=== PATIENT | male | born 1960 | race Hispanic/Latino ===

== ENCOUNTER 2016-08-13 18:26 | Inpatient (IN) | payer OTHER ==
[2016-08-13 18:40] VITALS: O2SAT 98; BMI 26.7
--- NOTE | 2016-08-13 19:52 | ED PDOC ---
Arrival/HPI - General Chief Complaint: Psychiatric Evaluation Time Seen by Provider: 08/13/16 18:40 Historian: Patient - History of Present Illness Narrative History of Present Illness (Text): 08/13/16 19:45 56yo male with history of Depression and anxiety referred to ED by his Psychiatrist Dr. Parkinson. He reports anxiety and depression. States his job has being moving him to different locations without prior notice and it is making him anxious. He notes that he is taking his antipsychiatric medication. States he has been having suicidal ideation for weeks. Denies HI, hallucination , any somatic complaint. Past Medical History - Provider Review Nursing Documentation Reviewed: Yes - Tetanus Immunization Tetanus Immunization: Up to Date - Cardiac Hx Cardiac Disorders: Yes Hx Hypertension: Yes - Pulmonary Hx Respiratory Disorders: No (Smoker) Hx Asthma: No Hx Bronchitis: No Hx Chronic Obstructive Pulmonary Disease (COPD): No Hx Emphysema: No Hx Pneumonia: No Hx Respiratory Aspiration: No Hx Respiratory Tract Infection: No Hx Sleep Apnea: No Hx Tuberculosis: No - Neurological Hx Alzheimer's Disease: No HX Cerebrovascular Accident: No Hx Dementia: No Hx Dizziness: No Hx Meningitis: No Hx Migraine: No Hx Parkinson's Disease: No Hx Seizures: No Hx Transient Ischemic Attacks (TIA): No - HEENT Hx HEENT Disorder: No Hx Cataracts: No Hx Deafness: No Hx Difficulty Chewing: No Hx Epistaxis: No Hx Glaucoma: No Hx Macular Degeneration: No - Renal Hx Renal Disorder: No Hx Dialysis: No Hx Kidney Stones: No Hx Neurogenic Bladder: No Hx Pyelonephritis: No Hx Renal Cancer: No Hx Renal Failure: No - Endocrine/Metabolic Hx Endocrine Disorders: No Hx Adrenal Cancer: No Hx Diabetes Insipidus: No Hx Diabetes Mellitus Type 1: No Hx Diabetes Mellitus Type 2: No Hx Hyperthyroidism: No Hx Hypothyroidism: No Hx Systemic Lupus Erythematosus: No - Hematological/Oncological Hx Blood Disorders: No Hx AIDS: No Hx Anemia: No Hx Cancer: No Hx Chemotherapy: No Hx Cirrhosis: No Hx Hemophilia: No Hx Hepatitis A: No Hx Hepatitis B: No Hx Hepatitis C: No Hx Metastasis: No Hx Shingles: No Hx Sickle Cell Disease: No Hx Unexplained Bleeding: No - Integumentary Hx Dermatological Disorder: No Hx Basal Cell Carcinoma: No Hx Eczema: No Hx Melanoma: No Hx Psoriasis: No Hx Squamous Cell Carcinoma: No - Musculoskeletal/Rheumatological Hx Musculoskeletal Disorders: Yes Hx Osteoporosis: No Other/Comment: NECK PAIN - Gastrointestinal Hx Gastrointestinal Disorders: No Hx Colostomy: No Hx Crohn's Disease: No Hx Diverticulitis: No Hx Gall Bladder Disease: No Hx Gastroesophageal Reflux: Yes Hx Ileostomy: No Hx Liver Failure: No Hx Pancreatitis: No HX Swallowing Problems: No - Genitourinary/Gynecological Hx Genitourinary Disorders: No Hx Hematuria: No Hx Incontinence: No Hx Prostate Problems: No Hx Sexually Transmitted Diseases: No Hx Urinary Tract Infection: No - Psychiatric Hx Anxiety: Yes Hx Depression: Yes Hx Emotional Abuse: No Hx Physical Abuse: No Hx Substance Use: No - Past Surgical History Past Surgical History: No Previous - Surgical History Hx Amputation: No Hx Appendectomy: No Hx Cardiac Catheterization: No Hx Cholecystectomy: No Hx Coronary Stent: No Hx Gastric Bypass Surgery: No Hx Hysterectomy: No Hx Joint Replacement: No Hx Kidney Transplant: No Hx Liver Transplant: No Hx Mastectomy: No Hx Musculoskeletal Surgery: No Hx Open Heart Surgery: No Hx Orthopedic Surgery: No Hx Splenectomy: No Hx Valve Replacement: No - Anesthesia Hx Anesthesia: Yes Hx Anesthesia Reactions: No Hx Malignant Hyperthermia: No - Suicidal Assessment Feels Threatened In Home Enviroment: No Family/Social History - Physician Review Nursing Documentation Reviewed: Yes Family/Social History: Unknown Family HX Smoking Status: Heavy Smoker > 10 Cigarettes Daily Hx Alcohol Use: No Hx Substance Use: No Hx Substance Use Treatment: No Allergies/Home Meds Allergies/Adverse Reactions: Allergies No Known Allergies Allergy (Verified 08/13/16 23:08) Home Medications: Home Meds Medication Instructions Recorded Confirmed Brexpiprazole [Rexulti] 0.5 mg PO HS 08/13/16 08/13/16 Tiotropium Br/Olodaterol HCl 2.5 mcg INH DAILY 08/13/16 08/13/16 [Stiolto Respimat Inhal [place]] Review of Systems - Physician Review All systems were reviewed & negative as marked: Yes - Review of Systems Constitutional: Normal Eyes: Normal ENT: Normal Respiratory: Normal Cardiovascular: Normal Gastrointestinal: Normal Genitourinary Male: Normal Musculoskeletal: Normal Skin: Normal Neurological: Normal Endocrine: Normal Hemo/Lymphatic: Normal Psychiatric: Anxiety, Depression, Suicidal Ideation Physical Exam Vital Signs Reviewed: Yes Vital Signs Temp Pulse Resp BP Pulse Ox 08/13/16 22:43 18 176/76 H 08/13/16 18:35 97.9 F 82 18 157/90 H 98 Temperature: Afebrile Blood Pressure: Normal Pulse: Regular Respiratory Rate: Normal Appearance: Positive for: Well-Appearing, Non-Toxic, Comfortable Pain Distress: None Mental Status: Positive for: Alert and Oriented X 3 - Systems Exam Head: Present: Atraumatic, Normocephalic Pupils: Present: PERRL Extroacular Muscles: Present: EOMI Conjunctiva: Present: Normal Mouth: Present: Moist Mucous Membranes Neck: Present: Normal Range of Motion Respiratory/Chest: Present: Clear to Auscultation, Good Air Exchange. No: Respiratory Distress, Accessory Muscle Use Cardiovascular: Present: Regular Rate and Rhythm, Normal S1, S2. No: Murmurs Abdomen: Present: Normal Bowel Sounds. No: Tenderness, Distention, Peritoneal Signs Back: Present: Normal Inspection Upper Extremity: Present: Normal Inspection. No: Cyanosis, Edema Lower Extremity: Present: Normal Inspection. No: Edema Neurological: Present: GCS=15, CN II-XII Intact, Speech Normal Skin: Present: Warm, Dry, Normal Color. No: Rashes Psychiatric: Present: Alert, Oriented x 3, Normal Insight, Normal Concentration , Anxious Medical Decision Making ED Course and Treatment: 08/14/16 01:12 PT was medically cleared for psychiatric evaluation. He was seen in ED by CAROL Lyles and was admitted to Dr. Santiago's service for MDD and RAY - Lab Interpretations Lab Results: 08/13/16 20:07 08/13/16 20:07 Lab Results 08/13/16 20:07: Alcohol, Quantitative < 10 08/13/16 20:07: Salicylates < 1 L, Acetaminophen < 10.0 L 08/13/16 20:07: Urine Opiates Screen Negative, Urine Methadone Screen Negative, Ur Barbiturates Screen Negative, Ur Phencyclidine Scrn Negative, Ur Amphetamines Screen Negative, U Benzodiazepines Scrn Positive H, U Oth Cocaine Metabols Negative, U Cannabinoids Screen Negative 08/13/16 20:07: Sodium 137, Potassium 3.9, Chloride 103, Carbon Dioxide 27, Anion Gap 11, BUN 16, Creatinine 0.8, Est GFR ( Amer) > 60, Est GFR (Non- Af Amer) > 60, Random Glucose 87, Calcium 9.0, Total Bilirubin 0.5, AST 24, ALT 32, Alkaline Phosphatase 92, Total Protein 7.8, Albumin 3.9, Globulin 3.9, Albumin/Globulin Ratio 1.0 L 08/13/16 20:07: Urine Color Yellow, Urine Appearance Clear, Urine pH 7.0, Ur Specific [place] 1.015, Urine Protein Trace H, Urine Glucose (UA) Negative, Urine Ketones Negative, Urine Blood Negative, Urine Nitrate Negative, Urine Bilirubin Negative, Urine Urobilinogen 2.0 H, Ur Leukocyte Esterase Negative, Urine RBC 0 - 2, Urine WBC 0 - 2, Ur Epithelial Cells 0 - 2, Urine Bacteria Few 08/13/16 20:07: WBC 7.9, RBC 4.47, Hgb 13.9 L, Hct 40.5 L, MCV 90.6, MCH 31.1, MCHC 34.3, RDW 13.6, Plt Count 213, MPV 10.8, Gran % 60.2, Lymph % (Auto) 31.0, [place] % (Auto) 6.9 H, Eos % (Auto) 1.6, Baso % (Auto) 0.3, Gran # 4.77, Lymph # 2.5, [place] # 0.6, Eos # 0.1, Baso # 0.02 - Medication Orders Current Medication Orders: Acetaminophen (Tylenol 325mg Tab) 650 mg PO Q6H PRN PRN Reason: Pain, Mild (1-3) Al Hydrox/Mg Hydrox/Simethicone (Maalox Plus 30 Ml) 30 ml PO DAILY PRN PRN Reason: Upset Stomach Alprazolam (Xanax) 1 mg PO TID PRN; Protocol PRN Reason: Anxiety Last Admin: 08/14/16 00:08 Dose: 1 mg Amlodipine Besylate (Norvasc) 10 mg PO DAILY JOSE Lisinopril (Zestril) 20 mg PO DAILY JOSE Magnesium Hydroxide (Milk Of Magnesia) 30 ml PO DAILY PRN PRN Reason: Constipation Nicotine (Nicoderm Cq) 1 patch TD DAILY JOSE Paroxetine HCl (Paxil) 20 mg PO HS JOSE Discontinued Medications Paroxetine HCl (Paxil) 20 mg PO DAILY JOSE Paroxetine HCl (Paxil) 20 mg PO ONCE ONE Stop: 08/14/16 00:04 Last Admin: 08/14/16 00:09 Dose: 20 mg Disposition/Present on Arrival - Present on Arrival Any Indicators Present on Arrival: No History of DVT/PE: No History of Uncontrolled Diabetes: No Urinary Catheter: No History of Decub. Ulcer: No History Surgical Site Infection Following: None - Disposition Have Diagnosis and Disposition been Completed?: Yes Diagnosis: Suicidal ideation, MDD (major depressive disorder), RAY (generalized anxiety disorder) Disposition: HOSPITALIZED Disposition Time: 21:50 Patient Problems: Current Active Problems Problem Status Onset RAY (generalized anxiety disorder) Acute MDD (major depressive disorder) Acute Suicidal ideation Acute Condition: FAIR
[2016-08-13 20:08] LABS: ADD MANUAL DIFF? NO
[2016-08-13 20:18] LABS: URINE BILIRUBIN NEGATIVE (NEGATIVE); URINE BLOOD NEGATIVE (NEGATIVE); URINE GLUCOSE (UA) NEGATIVE (NEGATIVE); URINE KETONE NEGATIVE (NEGATIVE); URINE LEUKOCYTE ESTERASE NEGATIVE Leu/uL (NEGATIVE); URINE PROTEIN TRACE mg/dL (<30 mg/dL)
[2016-08-13 20:24] LABS: URINE APPEARANCE CLEAR (CLEAR); URINE COLOR YELLOW (YELLOW)
[2016-08-13 20:25] LABS: ALKALINE PHOSPHATASE 92 U/L (38-133); ALT/SGPT 32 U/L (7-56); AST/SGOT 24 U/L (15-59); BILIRUBIN,TOTAL 0.5 mg/dL (0.2-1.3); BLOOD UREA NITROGEN 16 mg/dL (7-21); CARBON DIOXIDE 27 mmol/L (21-33); CHLORIDE 103 mmol/L (98-107); GFR AFRICAN-AMERICAN > 60; GLUCOSE,RANDOM 87 mg/dL (70-110); POTASSIUM 3.9 mmol/L (3.6-5.0); SODIUM 137 mmol/L (132-148); TOTAL PROTEIN 7.8 g/dL (5.8-8.3)
[2016-08-13 20:30] LABS: URINE BACTERIA FEW (NEG); URINE EPITHELIAL CELLS 0 - 2 /hpf (0-5); URINE RBC 0 - 2 /hpf (0-2); URINE WBC 0 - 2 /hpf (0-6)
[2016-08-13 20:34] LABS: BASO # 0.02 K/mm3 (0.0-2.0); BASO % 0.3 % (0.0-3.0); EOS # 0.1 (0.0-0.7); EOS % 1.6 % (1.5-5.0); GRAN # 4.77 (1.4-6.5); GRAN % 60.2 % (50.0-68.0); HEMATOCRIT 40.5 % (42.0-52.0); LYMPH # 2.5 (1.2-3.4); MEAN CELL VOLUME 90.6 fL (80.0-105.0); MEAN CORPUSCULAR HEMOGLOBIN 31.1 pg (25.0-35.0); MEAN CORPUSCULAR HGB CONC 34.3 g/dl (31.0-37.0); MEAN PLATELET VOLUME 10.8 fl (7.0-11.0); MONO # 0.6 (0.1-0.6); MONO % 6.9 % (1.0-6.0); PLATELET COUNT 213 10^3/uL (120.0-450.0); RED CELL DISTRIBUTION WIDTH 13.6 % (11.5-14.5); WHITE BLOOD COUNT 7.9 10^3/ul (4.5-11.0)
[2016-08-13] MEDS ORDERED: Magnesium Hydroxide Susp 30 ml UD PO PRN (23:00)
--- NOTE | 2016-08-13 23:50 | PCM.BM ---
Addendum entered and electronically signed by Bettie Andrade AT 08/20/16 12:24: Treatment Plan Problems - Problems identified on initial assessmt suiicidal Assessment reference: NA Status: Active depression Date Initiated: 08/13/16 Assessment reference: NA Status: Active Problem 3 anxiety Date Initiated: 08/13/16 Assessment reference: NA Status: Active Problem 1 Suicidal ideation Date Initiated: 08/13/16 Time Initiated: 23:47 Assessment reference: NA Status: Active Priority: 1 Problem 2 depression Date Initiated: 08/13/16 Assessment reference: NA Status: Active Priority: 2 Problem 1 Date Initiated: 08/13/16 Time Initiated: 23:47 Assessment reference: NA Status: Active Priority: 1 Problem 2 Date Initiated: 08/13/16 Time Initiated: 23:48 Assessment reference: NA Status: Active Priority: 2 Problem 3 Date Initiated: 08/13/16 Time Initiated: 23:48 Assessment reference: NA Status: Active Priority: 3 Original Note: <Stephen Ambriz - Last Filed: 08/13/16 23:47> Treatment Plan Problems - Problems identified on initial assessmt Problem 1 Date Initiated: Suicidal Ideation Time Initiated: 23:47 Assessment reference: NA Status: Active Priority: 1 Problem 2 Date Initiated: Depression Time Initiated: 23:48 Assessment reference: NA Status: Active Priority: 2 Problem 3 Date Initiated: Anxiety Time Initiated: 23:48 Assessment reference: NA Status: Active Priority: 3 Treatment team patient informa Patient Assests: cooperative, insightful, self-reliant, ADL independent, physically healthy, good support system, negotiates basic needs, good past tx response, cognitively intact, good interpersonal skills Patient Liabilities: financial problems - Milieu Protocol Maintain good personal hygiene: daily Encourage regular showers, daily Remind patient to perform daily oral care, daily Assist patient to perform ADL's Conduct patient checks and document Observation sheet: Q15 minutes Maintain personal safety: every shift Educate patient to report safety concerns to staff, every shift Monitor environment for contraband/sharps Medication safety: Monitor for expected outcome, potential side effects: every shift, Assess barriers to learning: every shift, Assess readiness for medication education: every shift <Pamela Adams - Last Filed: 08/14/16 11:17> DSM5-Treatment Plan - Diagnosis (1) RAY (generalized anxiety disorder) Status: Acute Interventions: 08/14/16 09:33 * Assess/adjust medications daily and /or as needed * See patient on an individual basis 7x/week to assess symptoms of anxiety * Educate patient regarding benefits, side effects and risks of prescribed medications * CBT as outpatient * med management * biofeedback * relaxation techniques (2) MDD (major depressive disorder) Status: Acute Interventions: 08/14/16 09:35 * Assess/adjust medications daily and /or as needed * See patient on an individual basis 7x/week to assess symptoms of depression * Monitor for side effects & effectiveness of medications * supportive/CBT therapy * meds and f/u compliance * suicide and homicide prevention (3) Suicidal ideation Status: Acute Interventions: 08/14/16 09:36 * Assess/adjust medications daily and /or as needed * See patient on an individual basis 7x/week to assess symptoms of depression/ anxiety * Educate patient regarding benefits, side effects and risks of prescribed medications * suicide and homicide prevention * coping strategies * safety plan * DTP (day treatment program) * family involvement (4) Hypertension Status: Acute Interventions: 08/14/16 09:37 meds management pt will be seen by the PCP education meds compliance <Candice Jain - Last Filed: 08/14/16 12:20> Family Contact Family involvement: Family/SO is involved Family contact: Patient agrees to contact Family contact name: Carie Wayne() Family contacted how many times per week?: 2 Family contact comment: [phone] - Outside Agency Dr. Galvan Care involvment: Not involved Agency contact name: psychiatrist, Dr. Galvan <Licha Dailey - Last Filed: 08/14/16 16:14> Treatment Plan Problems - Problems identified on initial assessmt Problem 3 anxiety Date Initiated: 08/13/16 Assessment reference: NA Status: Active Problem 1 Suicidal ideation Date Initiated: 08/13/16 Time Initiated: 23:47 Assessment reference: NA Status: Active Priority: 1 Problem 2 depression Date Initiated: 08/13/16 Assessment reference: NA Status: Active Priority: 2 suiicidal Assessment reference: NA Status: Active depression Date Initiated: 08/13/16 Assessment reference: NA Status: Active Treatment team patient informa Patient Assests: adapts well, cooperative, motivated, ADL independent, cognitively intact Patient Liabilities: poor support system, relationship conflicts - Milieu Protocol Maintain good personal hygiene: daily Encourage regular showers, daily Remind patient to perform daily oral care, daily Assist patient to perform ADL's Conduct patient checks and document Observation sheet: Q15 minutes Maintain personal safety: every shift Educate patient to report safety concerns to staff, every shift Monitor environment for contraband/sharps Medication safety: Monitor for expected outcome, potential side effects: every shift, Assess barriers to learning: every shift, Assess readiness for medication education: every shift Family Contact - Goals for Treatment Patient goals for treatment: to get myself back Discharge/Continuing Care - Education Needs Education Needs: Patient Medication, Patient Diagnosis/Disease Process, Patient Coping Skills, Patient Anger Management skills, Patient Placement options, Patient Community resources, Patient Activities of Daily Living, Patient Pain, Patient Nutrition, Patient Health Practices/Safety, Patient Personal Hygiene/ Grooming, Patient Aftercare Safety Plan - Discharge Discharge Criteria: Tolerates medication w/o severe side effects, Free of Suicidal thoughts, Free of agitation, Normal sleep pattern, Ability to care for self Discharge to:: Home - Treatment Team Participation Discussed with Family/SO: No Was Patient/Family/SO present at Treatment Team Meeting: Yes
--- NOTE | 2016-08-14 16:03 | CARD ---
APPROVED REPORT EKG Measurement Heart [id number] <Conclusion> Normal sinus rhythm T wave abnormality, consider inferior ischemia Abnormal ECG
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
--- NOTE | 2016-08-14 19:18 | CON ---
DATE: 08/14/2016 HISTORY OF PRESENT ILLNESS: This is a 56-year-old white male with a past medical history of anxiety, depression and complaining of some memory and forgetfulness problems and the patient was at job in d ifferent location and was very anxious and did not recognize people. Denies any headache, numbness, tingling in arms, legs or face. HOME MEDICATION: ALLERGIES: No known drug allergy. LABORATORY DATA: WBC 7.9, hemoglobin 13.9, hematocrit 40.5, platelets 213. Sodium 137, potassium 3. 9, chloride 103, CO2 of 27, glucose 87, BUN 16, creatinine 0.8. PHYSICAL EXAMINATION: NEUROLOGIC: Alert, awake, oriented to self and place. Cranial nerves II through XII were tested. P upils reactive. EOMs intact. Visual espinal full. No facial asymmetry. Tongue midline. Moves all the extremities equally. Tone normal. Deep tendon reflexes 1+. Both plantars are downgoing. Senso ry appears intact. Cerebellar, gait normal. IMPRESSION: 1. Mild cognitive dysfunction, possibly dementia. 2. Depression. PLAN: MRI of the head with and without gadolinium and EEG. Further management after the results of above tests. Blayne Xiong MD cc: [id number] TT: 08/14/2016 19:17:28 Confirmation # [id number] Dictation # [id number] stephanie
[2016-08-14] MEDS: Alum-Mag Hydrox-Simethicone Susp (30 mL) PO PRN (23:40)
[2016-08-15 08:00] LABS: CHOLESTEROL 191 mg/dL (130-200); GLUCOSE,FASTING 94 mg/dL (65-110)
[2016-08-15 08:17] LABS: FREE T4 0.88 ng/dL (0.78-2.19)
[2016-08-15 08:30] LABS: THYROID STIMULATING HORMONE 1.44 mIU/mL (0.46-4.68)
--- NOTE | 2016-08-15 10:22 | CP.PCM.PCO ---
Physician Communication Note - Physician Communication Note Physician Communication Note: eeg is mildly slow.WIll f/u as outpt.c/w attention exercises&pysch mx.
--- NOTE | 2016-08-15 14:55 | PCM.PYCHPN ---
Psychiatric Progress Note - Psychiatric Progress Note Patient seen today, length of contact: 30 minute Patient Chief Complaint: "I I lost myself" Problems Identified/Issues Discussed: Suicide/ homicide prevention, past psychiatric h/o, current psychiatric symptoms , medical problems, risk/benefits and alternatives of medications, medications compliance, coping strategies, substance abuse h/o, relapse prevention, importance of follow up with psychiatrist and therapist, discharge plan. Medical Problems: hypertension ? Early dementia Diagnostic Results: 08/13/16 20:07 08/13/16 20:07 Lab Results 08/15/16 07:00: Free T4 0.88, TSH 3rd Generation 1.44 08/15/16 07:00: Fasting Glucose 94, Triglycerides 127, Cholesterol 191, LDL Cholesterol Direct 142 H, HDL Cholesterol 40 08/13/16 20:07: Alcohol, Quantitative < 10 08/13/16 20:07: Salicylates < 1 L, Acetaminophen < 10.0 L 08/13/16 20:07: Urine Opiates Screen Negative, Urine Methadone Screen Negative, Ur Barbiturates Screen Negative, Ur Phencyclidine Scrn Negative, Ur Amphetamines Screen Negative, U Benzodiazepines Scrn Positive H, U Oth Cocaine Metabols Negative, U Cannabinoids Screen Negative 08/13/16 20:07: Sodium 137, Potassium 3.9, Chloride 103, Carbon Dioxide 27, Anion Gap 11, BUN 16, Creatinine 0.8, Est GFR ( Amer) > 60, Est GFR (Non- Af Amer) > 60, Random Glucose 87, Calcium 9.0, Total Bilirubin 0.5, AST 24, ALT 32, Alkaline Phosphatase 92, Total Protein 7.8, Albumin 3.9, Globulin 3.9, Albumin/Globulin Ratio 1.0 L 08/13/16 20:07: Urine Color Yellow, Urine Appearance Clear, Urine pH 7.0, Ur Specific [place] 1.015, Urine Protein Trace H, Urine Glucose (UA) Negative, Urine Ketones Negative, Urine Blood Negative, Urine Nitrate Negative, Urine Bilirubin Negative, Urine Urobilinogen 2.0 H, Ur Leukocyte Esterase Negative, Urine RBC 0 - 2, Urine WBC 0 - 2, Ur Epithelial Cells 0 - 2, Urine Bacteria Few 08/13/16 20:07: WBC 7.9, RBC 4.47, Hgb 13.9 L, Hct 40.5 L, MCV 90.6, MCH 31.1, MCHC 34.3, RDW 13.6, Plt Count 213, MPV 10.8, Gran % 60.2, Lymph % (Auto) 31.0, [place] % (Auto) 6.9 H, Eos % (Auto) 1.6, Baso % (Auto) 0.3, Gran # 4.77, Lymph # 2.5, [place] # 0.6, Eos # 0.1, Baso # 0.02 Vital Signs Temp Pulse Resp BP Pulse Ox 08/15/16 08:50 133/89 08/15/16 07:55 98.2 F 64 20 133/84 08/14/16 15:57 75 163/101 H 08/14/16 08:29 130/68 08/14/16 07:43 97.6 F 57 L 20 130/68 08/14/16 07:42 97.6 F 57 L 20 130/68 08/13/16 23:12 18 08/13/16 23:00 97.5 F L 77 18 187/89 H 98 08/13/16 22:43 18 176/76 H 08/13/16 18:35 97.9 F 82 18 157/90 H 98 EEG showed mild slowness DSM 5 Symptoms Update: Shortly pt is 56yo Male with reported h/o depression, two previous psychiatric admission to [facility], h/o suicidal attempts approximately a year ago, pt tried to suffocate himself with the belt, a week ago pt had the same attempt, moreover one month ago pt tried to overdose on medications, pt currently under care of outpatient psychiatrist who sent pt here for admission, 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 Pt was seen at [facility], hygiene is much better. Patient has difficult to to remember the task, patient did not remember what assignment was. Patient was seen by neurology team, slowness on EEG, needs to be followed up as outpatient, possible early onset of dementia? pt reported tolerating meds well, no side effects observed or reported, AIMS 0, no EPS. pt reported to feel very depressed, hopeless, worried about his finances. as per staff pt started to attend groups, no behavioral issues, pt appears to be depressed, flat, difficulties with concentration. Impression: DSM 5 Diagnosis: MDD recurrent, severe without psychosis r/o RAY r/o adjustment disorder Medication Change: Yes (Paxil increased) Medical Record Reviewed: Yes Consults ordered or reviewed: mmedical consult will be called Neurology consult appreciated Mental Status Examination - Cognitive Function Orientation: Person, Place, Situation, Time Memory: Impaired (his this documentation writer is unsure if decrease in memory related to depression or dementia?) Attention: Poor Concentration: Poor Association: WNL Fund of Knowledge: WNL - Mood Mood: Depressed ("I am very depressed, I feel hopeless, I lost myself"), Anxious ("i los) - Affect Affect: Constricted, Flat - Formal Thought Process Formal Thought Process: No Impairment - Suicidal Ideation Suicidal Ideation: No - Homicidal Ideation Homicidal Ideation: No Goal/Treatment Plan - Goal/Treatment Plan Need for Continued Stay: Remain at risks for inpatient hospitalization, Severe depression anxiety, Discharge may exacerbated symptoms, Severe functional impairment Progress Toward Problem(s) and Goals/Treatment Plan: milieu, structure, supportive therapy Xanax 1 mg PO TID Will be continued Lisinopril [Zestril] 20 mg PO DAILY will be continued PARoxetine [Paxil] 20 mg PO HS for depression and anxiety (pt was on 10mg hs) this documentation writer offered Wellbutrin, patient does not want to be on that medication amLODIPine [Norvasc] 10 mg PO DAILY will be continued Brexpiprazole [Rexulti] dates nonformulary medical consultation neurology consultation appreciated SW evaluation family involvement Estimated Date of D/C: 08/20/16 (we'll monitor closely)
[2016-08-15] MEDS: Alum-Mag Hydrox-Simethicone Susp (30 mL) PO PRN (16:10)
[2016-08-16] MEDS ORDERED: Gadodiamide 287 MG/ML VIAL (15ML) IV ONE (16:21)
--- NOTE | 2016-08-16 16:50 | PCM.PYCHPN ---
Psychiatric Progress Note - Psychiatric Progress Note Patient seen today, length of contact: 30 minute Patient Chief Complaint: "I I lost myself, I don't know what to do, I am not able to hold information, it is not me..." Problems Identified/Issues Discussed: Suicide/ homicide prevention, past psychiatric h/o, current psychiatric symptoms , medical problems, risk/benefits and alternatives of medications, medications compliance, coping strategies, substance abuse h/o, relapse prevention, importance of follow up with psychiatrist and therapist, discharge plan. Medical Problems: hypertension ? Early dementia Diagnostic Results: 08/13/16 20:07 08/13/16 20:07 Lab Results 08/15/16 07:00: Free T4 0.88, TSH 3rd Generation 1.44 08/15/16 07:00: Fasting Glucose 94, Triglycerides 127, Cholesterol 191, LDL Cholesterol Direct 142 H, HDL Cholesterol 40 08/13/16 20:07: Alcohol, Quantitative < 10 08/13/16 20:07: Salicylates < 1 L, Acetaminophen < 10.0 L 08/13/16 20:07: Urine Opiates Screen Negative, Urine Methadone Screen Negative, Ur Barbiturates Screen Negative, Ur Phencyclidine Scrn Negative, Ur Amphetamines Screen Negative, U Benzodiazepines Scrn Positive H, U Oth Cocaine Metabols Negative, U Cannabinoids Screen Negative 08/13/16 20:07: Sodium 137, Potassium 3.9, Chloride 103, Carbon Dioxide 27, Anion Gap 11, BUN 16, Creatinine 0.8, Est GFR ( Amer) > 60, Est GFR (Non- Af Amer) > 60, Random Glucose 87, Calcium 9.0, Total Bilirubin 0.5, AST 24, ALT 32, Alkaline Phosphatase 92, Total Protein 7.8, Albumin 3.9, Globulin 3.9, Albumin/Globulin Ratio 1.0 L 08/13/16 20:07: Urine Color Yellow, Urine Appearance Clear, Urine pH 7.0, Ur Specific [place] 1.015, Urine Protein Trace H, Urine Glucose (UA) Negative, Urine Ketones Negative, Urine Blood Negative, Urine Nitrate Negative, Urine Bilirubin Negative, Urine Urobilinogen 2.0 H, Ur Leukocyte Esterase Negative, Urine RBC 0 - 2, Urine WBC 0 - 2, Ur Epithelial Cells 0 - 2, Urine Bacteria Few 08/13/16 20:07: WBC 7.9, RBC 4.47, Hgb 13.9 L, Hct 40.5 L, MCV 90.6, MCH 31.1, MCHC 34.3, RDW 13.6, Plt Count 213, MPV 10.8, Gran % 60.2, Lymph % (Auto) 31.0, [place] % (Auto) 6.9 H, Eos % (Auto) 1.6, Baso % (Auto) 0.3, Gran # 4.77, Lymph # 2.5, [place] # 0.6, Eos # 0.1, Baso # 0.02 Vital Signs Temp Pulse Resp BP Pulse Ox 08/15/16 08:50 133/89 08/15/16 07:55 98.2 F 64 20 133/84 08/14/16 15:57 75 163/101 H 08/14/16 08:29 130/68 08/14/16 07:43 97.6 F 57 L 20 130/68 08/14/16 07:42 97.6 F 57 L 20 130/68 08/13/16 23:12 18 08/13/16 23:00 97.5 F L 77 18 187/89 H 98 08/13/16 22:43 18 176/76 H 08/13/16 18:35 97.9 F 82 18 157/90 H 98 EEG showed mild slowness MRI 08/16/16 DSM 5 Symptoms Update: Shortly pt is 56yo Male with reported h/o depression, two previous psychiatric admission [place] [facility], h/o suicidal attempts approximately a year ago, pt tried to suffocate himself with the belt, a week ago pt had the same attempt, moreover one month ago pt tried to overdose on medications, pt currently under care of outpatient psychiatrist who sent pt here for admission, 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 Pt was seen at the treatment team meeting, hygiene is much better. pt still has difficulties to memorize his assignments, asked this chief writer to write it down for him. D/W , MRI with and without contrast recommended, psychiatrist needs to call back to the Neurology team if any abnormalities. EEG showed slowness, needs to be followed up as outpatient, possible early onset of dementia? pt reported tolerating meds well, no side effects observed or reported, AIMS 0, no EPS. pt reported to feel very depressed, hopeless, worried about his finances. as per staff pt started to attend groups, no behavioral issues, pt appears to be depressed, flat, difficulties with concentration. Impression: DSM 5 Diagnosis: MDD recurrent, severe without psychosis r/o RAY r/o adjustment disorder Medication Change: Yes (vitamines) Medical Record Reviewed: Yes Consults ordered or reviewed: mmedical consult will be called Neurology consult appreciated Mental Status Examination - Cognitive Function Orientation: Person, Place, Situation, Time Memory: Impaired (his this chief writer is unsure if decrease in memory related to depression or dementia?) Attention: Poor Concentration: Poor Association: WNL Fund of Knowledge: WNL - Mood Mood: Depressed ("I am very depressed, I feel hopeless, I lost myself"), Anxious ("i los) - Affect Affect: Constricted, Flat - Formal Thought Process Formal Thought Process: No Impairment - Suicidal Ideation Suicidal Ideation: No - Homicidal Ideation Homicidal Ideation: No Goal/Treatment Plan - Goal/Treatment Plan Need for Continued Stay: Remain at risks for inpatient hospitalization, Severe depression anxiety, Discharge may exacerbated symptoms, Severe functional impairment Progress Toward Problem(s) and Goals/Treatment Plan: milieu, structure, supportive therapy Xanax 1 mg PO TID Will be continued Lisinopril [Zestril] 20 mg PO DAILY will be continued PARoxetine [Paxil] 20 mg PO HS for depression and anxiety (pt was on 10mg hs) pt does not want to increase it because "I don't feel myself" multivitamines started this chief writer offered Wellbutrin, patient does not want to be on that medication amLODIPine [Norvasc] 10 mg PO DAILY will be continued Brexpiprazole [Rexulti] dates nonformulary medical consultation neurology consultation appreciated SW evaluation family involvement Estimated Date of D/C: 08/20/16 (we'll monitor closely)
--- NOTE | 2016-08-16 18:31 | MRI ---
PROCEDURE: MRI BRAIN WITH AND WITHOUT CONTRAST HISTORY: memory loss COMPARISON: None. TECHNIQUE: Multiplanar, multisequence MR images of the brain were obtained with and without intravenous contrast enhancement. FINDINGS: HEMORRHAGE: None DWI: No evidence of an acute or early subacute infarction. BRAIN PARENCHYMA: No mass,mass effect or edema. Mild atrophy is noted. ENHANCEMENT: No abnormal intracranial enhancement. VENTRICLES: Unremarkable. No hydrocephalus. CRANIUM: Unremarkable. ORBITS: Grossly unremarkable. PARANASAL SINUSES/MASTOIDS: Clear VASCULAR SYSTEM: Skull base flow voids intact. OTHER FINDINGS: None . IMPRESSION: No evidence of acute pathology in the brain. No evidence of suspicious mass or abnormal enhancement in the brain parenchyma. Small lesion at the anterior coronal radiata/ left frontal white matter demonstrates hyperintense T2 and FLAIR signal and hypointense T1 signal measures 7.5 millimeter may represent old infarct/gliosis. No evidence of mass effect or midline shift. Mild atrophy.
[2016-08-16] MEDS: Alum-Mag Hydrox-Simethicone Susp (30 mL) PO PRN (18:43)
--- NOTE | 2016-08-16 21:15 | EEG ---
DATE: 08/16/2016 CONDITION OF THE RECORDING: Awake, drowsy, history of memory loss. No hyperventilation was done. DESCRIPTION: Background activity of this tracing was composed of 8-9 cycles per second alpha rhythm. Small amount of beta activity 16-20 cycles per second was noted in the tracing. Theta activity 5-7 cycles per second was noted in the tracing. Drowsiness was composed of mixed beta and theta activit y. Photic stimulation did not change the record. No paroxysmal activity was seen in the record. IMPRESSION: Normal awake, drowsy electroencephalography. Blayne Tyrese EDMONDSON cc: [id number] TT: 08/16/2016 21:15:27 Confirmation # [id number] Dictation # [id number]
--- NOTE | 2016-08-17 09:20 | PCM.PYCHPN ---
Psychiatric Progress Note - Psychiatric Progress Note Patient seen today, length of contact: 25 minute Patient Chief Complaint: "depressed, more hopeful" Problems Identified/Issues Discussed: I reviewed assessment and recent notes. Patient was interviewed at bedside. He reports continued depression though improving since admission. Feels more hopeful now. Affect is constricted. Thus far he's tolerating his medications and denies any side effects. Thought process is coherent and patient denies having any hallucinations. He does not appear to be responding to internal stimuli and responses are relevant to questioning. Patient denies any new discomfort or pain. Staff notes indicate the patient has been calm and cooperative. Behavior has been in control and there were no issues overnight. 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 if decrease in memory related to depression or dementia?) Attention: WNL Concentration: Poor Association: WNL Fund of Knowledge: WNL - Mood Mood: Depressed ("more hopeful"), Anxious ("i los) - Affect Affect: Constricted, Flat - Speech Speech: Appropriate - Formal Thought Process Formal Thought Process: No Impairment - Suicidal Ideation Suicidal Ideation: No - Homicidal Ideation Homicidal Ideation: No Goal/Treatment Plan - Goal/Treatment Plan Need for Continued Stay: Remain at risks for inpatient hospitalization, Severe depression anxiety, Discharge may exacerbated symptoms, Severe functional impairment Progress Toward Problem(s) and Goals/Treatment Plan: * c/w current tx and plan * No new weekend labs * Vitals reviewed and noted below: Selected Entries 08/16/16 08/16/16 08/16/16 07:39 08:49 08:50 Temperature 97.6 F Pulse Rate 70 70 Respiratory 20 Rate Blood Pressure 130/76 130/76 130/76 08/16/16 08/16/16 12:07 16:20 Temperature 97.2 F L Pulse Rate 73 Respiratory Rate Blood Pressure 149/74 Estimated Date of D/C: 08/20/16 (we'll monitor closely)
[2016-08-17] MEDS: Multivitamin Therapeutic Tab PO SCH (09:35)
[2016-08-17] MEDS: Atropine-Diphenoxylate 0.025-2.5 mg Tab PO SCH (22:00)
[2016-08-18] MEDS: Alum-Mag Hydrox-Simethicone Susp (30 mL) PO PRN (05:06)
--- NOTE | 2016-08-18 08:58 | PCM.PYCHPN ---
Psychiatric Progress Note - Psychiatric Progress Note Patient seen today, length of contact: 25 minute Patient Chief Complaint: "anxious" Problems Identified/Issues Discussed: I reviewed recent notes and patient was interviewed at bedside. He reports continued depression which has been improving since admission. He feels more hopeful now though now anxious about his recent MRI results. Affect is anxious. Thus far he is tolerating his medications and denies any side effects. Thought process is coherent and patient denies having any perceptual disturbance. He does not appear to be responding to internal stimuli and responses are relevant to questioning. Patient denies any new discomfort or pain. Staff notes indicate the patient has been cooperative and a little brighter. Anxious at times regarding the results of his MRI. Nonetheless his behavior has been in control and there were no major issues over the weekend. 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 memory related to depression or dementia?) Attention: WNL Concentration: Poor Association: WNL Fund of Knowledge: WNL - Mood Mood: Depressed ("more hopeful"), Anxious ("more anxious because of the MRI results") - Affect Affect: Constricted, Flat - Speech Speech: Appropriate - Formal Thought Process Formal Thought Process: No Impairment - Suicidal Ideation Suicidal Ideation: No - Homicidal Ideation Homicidal Ideation: No Goal/Treatment Plan - Goal/Treatment Plan Need for Continued Stay: Remain at risks for inpatient hospitalization, Severe depression anxiety, Discharge may exacerbated symptoms, Severe functional impairment Progress Toward Problem(s) and Goals/Treatment Plan: * c/w current tx and plan * No new weekend labs * Vitals reviewed and noted below: Selected Entries 08/16/16 08/16/16 08/17/16 12:07 16:20 09:35 Temperature 97.2 F L Pulse Rate 73 Blood Pressure 149/74 139/84 08/17/16 17:06 Temperature Pulse Rate 72 Blood Pressure 145/80 Estimated Date of D/C: 08/20/16 (we'll monitor closely)
[2016-08-18] MEDS: Multivitamin Therapeutic Tab PO SCH (11:41)
[2016-08-18] MEDS: Atropine-Diphenoxylate 0.025-2.5 mg Tab PO SCH ×2 (11:44→16:02)
--- NOTE | 2016-08-19 01:10 | CON ---
DATE: 08/18/2016 HISTORY OF PRESENT ILLNESS: This patient was seen and evaluated earlier today. REASON FOR CONSULTATION: Chronic diarrhea and chronic reflux. HISTORY OF PRESENT ILLNESS: This 56-year-old patient with a history of hypertension, admitted to the psychiatric floor for depression. The patient was also complaining of episodes of diarrhea for a lo ng time. Has been using Imodium. The patient's was at bedside and also son at the time of exam ination, at the request of the patient. No history of any bleeding per rectum. The concern is becau se of the worsening of the reflux symptoms and the diarrhea. He has been using Imodium on and off fo r a long time. He never had an EGD or colonoscopy. PAST MEDICATION HISTORY: As above, history of hypertension, as mentioned above. ALLERGIES: No known drug allergies. SOCIAL HISTORY: Positive for smoking 1 pack per day. No alcohol. REVIEW OF SYSTEMS: Positive as above. Other systems reviewed. LABORATORY DATA: Hemoglobin 13.9, hematocrit 40.9, WBC is 7.9, platelets 213. The chemistry is esse ntially unremarkable. The patient did have an ultrasound scan of the abdomen done, which is suggesti ve of polyp in the gallbladder measuring about 4 mm. IMPRESSION AND PLAN: This 56-year-old patient admitted with depression has chronic diarrhea. He has been using Imodium. No bleeding per rectum and son has been diagnosed with Crohn's disease since th e age of 10. The differential diagnosis for chronic diarrhea should include irritable bowel syndrome , inflammatory bowel disease, functional diarrhea and also . The patient has a chronic reflux d isease, is being also a smoker. Advised the patient to cut down the smoking. The patient is only on . Will discontinue the , will start the patient on Protonix 40 mg daily. History of ques tionable gallbladder polyp. Last ultrasound was in 09/2015. Will repeat the ultrasound. The patien t's also mentioned that he has noticed the abdomen is more distended. Also, rule out ascites or mass/lesion. Physical exam did not reveal any mass, lesion or tenderness. The patient would benefi t from EGD and colonoscopy. Will discuss with the team regarding the timing of this procedure. Thank you very much for allowing us to participate in the care of the patient. Gabe Hutton MD cc: [id number] TT: 08/19/2016 01:09:19 Confirmation # [id number] Dictation # [id number] mn
[2016-08-19] MEDS: Multivitamin Therapeutic Tab PO SCH (07:46)
[2016-08-19] MEDS: Pantoprazole 40 mg EC Tab PO SCH (07:46)
--- NOTE | 2016-08-19 15:26 | US ---
HISTORY: GB polyp followup,abdominal distension COMPARISON: Abdominal ultrasound performed 09/27/15 TECHNIQUE: Sonographic evaluation of the abdomen. FINDINGS: LIVER: Measures 18.9 cm in sagittal dimension. Echogenic liver may be seen in setting of hepatic parenchymal disease or fatty infiltration. No focal hepatic mass identified. The main portal vein appears patent with normal directional flow. No intrahepatic bile duct dilatation. GALLBLADDER: Echogenic focus measures approximately 5 mm suspected to reflect gallbladder polyp. No gallstones. No gallbladder wall thickening. 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 COMMON BILE DUCT: Measures 5 mm. PANCREAS: Not well visualized. RIGHT KIDNEY: Measures 11.0 x 5.1 x 4.9cm. 1.7 x 1.0 x 1.0 cm probable cyst. No obstructing calculus or hydronephrosis identified. LEFT KIDNEY: Measures 11.7 x 5.6 x 5.1cm. No obstructing calculus or hydronephrosis identified. SPLEEN: Measures approximately 9.8 cm. AORTA: Limited views appear unremarkable. IVC: Limited views appear unremarkable. OTHER FINDINGS: None. IMPRESSION: Suspected 5 mm gallbladder polyp. Prior study performed 09/27/15 indicates presumed polyp measured approximately 4 mm. No consensus exist regarding management of polyps in the size range. Current recommendations indicate continued surveillance with serial follow-up imaging at 3, 6, and 12 months. 1.7 cm probable right renal cyst. Echogenic liver may be seen in setting of hepatic parenchymal disease or fatty infiltration. Borderline hepatomegaly.
--- NOTE | 2016-08-19 17:03 | PN ---
DATE: 08/19/2016 Seen and examined at the bedside earlier today. The patient had an abdominal ultrasound to follow up the gallbladder polyp and it was negative for gallstones, no gallbladder wall thickening, showed ech ogenic focus measuring approximately 5 mm, suspected to reflect gallbladder polyp, common bile duct m easured 5 mm. It looks like he may have some echogenic liver, either hepatic parenchymal disease or fatty liver, borderline hepatomegaly. The patient is not having any episodes of diarrhea. He had Im odium a few days ago. No reports of nausea, vomiting, shortness of breath, chest pain, or abdominal pain. VITAL SIGNS: Temperature is 97.5, blood pressure is 103/57, pulse 80, respirations 18. LABORATORIES: No new noted for today. PHYSICAL EXAMINATION: HEENT: Sclera is anicteric. NECK: Supple. CARDIAC: S1, S2. LUNG SOUNDS: With decreased breath sounds at the bases. No rales or wheeze. ABDOMEN: With bowel sounds, soft, is softly distended, nontender. No rebound, guarding, or organome kwabena. EXTREMITIES: No edema. NEUROLOGIC: Awake, alert, and oriented. ASSESSMENT: A 56-year-old male admitted with depression, complained of chronic diarrhea, been on Imo dium, rule out any irritable bowel syndrome, inflammatory bowel disease or functional diarrhea. The patient also has a history of chronic reflux, history of a questionable gallbladder polyp. The patie nt also with abdominal distention. He had borderline hepatomegaly on ultrasound. PLAN: Continue current medical treatment. The patient would benefit from an elective endoscopy and colonoscopy in view of complaints. Can consider as an outpatient. The patient was seen and case discussed with Dr. Hutton. Carie Vinsones VONNIE cc: [id number] TT: 08/19/2016 17:03:12 Confirmation # [id number] Dictation # [id number]
--- NOTE | 2016-08-20 00:59 | PN ---
DATE: 08/19/2016 Chart reviewed, case reviewed and case discussed with nursing. Covering for Dr. Adams. The patient is a pleasant 56-year-old white male who was admitted with anxiety and depression. 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 He wonders or worries if th is is causing his present mood and anxiety state or vice versa. I have observed with the patient that he is not exhibiting any overt neuropsychiatric signs as he is alert, oriented to 3 spheres, goal directed in speech, with no speech deficits, no thought disturbanc e and appears intelligent. 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 Nursing has observed that the patient does appear anxious and depressed and constricted at times. A brain MRI of 08/16/2016 as noted shows no evidence of acute pathology nor evidence of a suspiciousn ess mass. The patient's description of the results of the MRI in my review leave me somewhat perplexed and I wi ll pursue this tomorrow as his reported MRI of 08/16/2016 is unremarkable. The patient also had an abdominal ultrasound for followup of a gallbladder polyp, which was negative for gallstones or gallbladder wall thickening. Psychotropically, the patient is being maintained on Paxil 20 mg at bedtime, Xanax 1 mg t.i.d. p.r.n. Blood pressure 133/71, pulse 77, temperature 95.7, respiratory rate 18. The patient appeared to react in an appropriate and spontaneous manner without overt psychosis or res tricted affect. tomorrow. Devin Chan MD, PhD cc: [id number] TT: 08/20/2016 00:57:55 Confirmation # [id number] Dictation # [id number] mn
--- NOTE | 2016-08-20 01:12 | PN ---
DATE: 08/19/2016 ADDENDUM This patient was seen and evaluated earlier today. This is an addendum to the GI progress report dictated by Carie Howard APN. The patient is scheduled to be discharged. The patient has a history of intermittent episodes of loo se bowel movement. Son has been diagnosed with Crohn disease and is being treated. The patient also has significant chronic reflux symptoms. The patient would benefit from upper endoscopy and a colonoscopy. further evaluate. Thank you very much for allowing us to participate in the care of the patient. Gabe Hutton MD cc: [id number] TT: 08/20/2016 01:11:23 Confirmation # [id number] Dictation # [id number] tn
--- NOTE | 2016-08-20 01:30 | PN ---
DATE: 08/19/2016 SUBJECTIVE: This patient was seen and evaluated earlier today. The patient has a history of loose b owel movements and also has significant symptoms. PHYSICAL EXAMINATION: ABDOMEN: Soft. There is no tenderness. PLAN: The patient was, again, told about the importance of having a followup endoscopy and also eval uation for colonoscopy. Last colonoscopy was also . This patient has a long history of intermi ttent episodes of diarrhea. symptoms. PHYSICAL EXAMINATION: ABDOMEN: Soft. There is no tenderness. The patient would benefit from upper gastrointestinal endos copy and also colonoscopy. The patient is discharged. This can be performed as an outpatient. This patient was clearly told about the importance of having the tests done.. Gabe Hutton MD cc: [id number] TT: 08/20/2016 01:29:55 Confirmation # [id number] Dictation # [id number] mn
[2016-08-20 07:07] VITALS: BP 114/76; PULSE 78; RESP 20; TEMP 97.3
[2016-08-20] MEDS: Multivitamin Therapeutic Tab PO SCH (08:24)
[2016-08-20] MEDS: Pantoprazole 40 mg EC Tab PO SCH (08:24)
[2016-08-20 08:29] LABS: VITAMIN E (ALPHA) 9.7 mg/L (5.7-19.9); VITAMIN E (B-GAMMA) 1.8 mg/L (<=4.3)
--- NOTE | 2016-08-20 18:23 | CP.PCM.PN ---
Subjective - Date & Time of Evaluation Date of Evaluation: 08/20/16 Time of Evaluation: 11:40 - Subjective Subjective: S&E earlier today, no new complaints, no N/V or pain. No acute overnight events. Objective - Vital Signs/Intake and Output Vital Signs (last 24 hours): Temp Pulse Resp BP Pulse Ox 97.3 F L 78 20 114/76 98 08/20/16 07:06 08/20/16 07:06 08/20/16 07:06 08/20/16 08:24 08/13/16 23:00 - Constitutional Appears: No Acute Distress - Eye Exam Eye Exam: Normal appearance. absent: Scleral icterus - ENT Exam ENT Exam: Mucous Membranes Moist - Neck Exam Neck Exam: Normal Inspection - Respiratory Exam Respiratory Exam: Clear to Ausculation Bilateral, NORMAL BREATHING PATTERN - Cardiovascular Exam Cardiovascular Exam: +S1, +S2 - GI/Abdominal Exam GI & Abdominal Exam: Soft, Normal Bowel Sounds. absent: Tenderness - Extremities Exam Extremities Exam: absent: Calf Tenderness, Pedal Edema - Neurological Exam Neurological Exam: Alert, Awake, Oriented x3 Assessment and Plan - Assessment and Plan (Free Text) Assessment: ASSESSMENT: Depression Chronic Diarrhea, r/o IBS, IBD, or functional diarrhea GERD GB polyp, had FU US Hepatomegaly PLAN: continue current treatment, planned for discharge today, discuss w/ patient regarding outpt GI work up EGD/COLON, office information given to patient. Case discussed with Dr. Hutton.
== END 2016-08-20 15:30 | disposition home or self-care (01) | DRG 885 ==
LOC: ED 18:26 → ERH 20:52 → PSYC 22:40
PROVIDERS: ADMIT Psychiatry & Neurology Psychiatry; ATTEND Psychiatry & Neurology Psychiatry
DX: F33.2 Major depressive disorder, recurrent severe without psychotic features (principal); F03.90 Unspecified dementia, unspecified severity, without behavioral disturbance, psychotic disturbance, mood disturbance, and anxiety; R45.851 Suicidal ideations; F41.1 Generalized anxiety disorder; I10 Essential (primary) hypertension; K21.9 Gastro-esophageal reflux disease without esophagitis; K82.4 Cholesterolosis of gallbladder; R16.0 Hepatomegaly, not elsewhere classified; F17.210 Nicotine dependence, cigarettes, uncomplicated; Z79.899 Other long term (current) drug therapy; M54.2 Cervicalgia; R40.2412 Glasgow coma scale score 13-15, at arrival to emergency department; K52.9 Noninfective gastroenteritis and colitis, unspecified; F43.20 Adjustment disorder, unspecified; K76.0 Fatty (change of) liver, not elsewhere classified

== ENCOUNTER → 2018-04-30 | Day surgery (SDC) | payer OTHER | LOC: SDS 08:30 ==